=== PATIENT | female | born 1960 ===

== ENCOUNTER 2018-03-03 04:18 | Inpatient (IN) | payer OTHER ==
[2018-03-03] MEDS ORDERED: NACL 0.9% 3 ML SYG IV (06:00)
[2018-03-03 06:23] LABS: ADD MAN DIFF? NO
[2018-03-03 06:27] LABS: BASOPHILS % 0.4 % (0.0-2.0); EOSINOPHILS # 0.1 10^3/ul (0.0-0.5); EOSINOPHILS % 1.1 % (0.0-7.0); HEMATOCRIT 37.6 % (37.0-47.0); HEMOGLOBIN 12.2 g/dl (12.0-16.0); LYMPHOCYTES # 3.1 10^3/ul (0.8-2.9); MEAN CORPUSCULAR HEMOGLOBIN 29.3 pg (29.0-33.0); MEAN CORPUSCULAR HGB CONC 32.4 g/dl (32.0-37.0); MEAN CORPUSCULAR VOLUME 90.4 fl (82.0-101.0); MEAN PLATELET VOLUME 9.1 fl (7.4-10.4); MONOCYTE # 0.7 10^3/ul (0.3-0.9); MONOCYTES % 6.8 % (0.0-11.0); NEUTROPHIL # 6.9 10^3/ul (1.6-7.5); NEUTROPHILS % 63.3 % (39.0-77.0); PLATELET COUNT 271 10^3/UL (140-415); RED BLOOD COUNT 4.16 10^6/ul (4.20-5.40); RED CELL DISTRIBUTION WIDTH 12.6 % (11.5-14.5)
[2018-03-03 06:27] LABS: WHITE BLOOD COUNT 10.9 10^3/ul (4.8-10.8)
[2018-03-03] MEDS: PANTOPRAZOLE 40 MG INJ IV (06:36)
[2018-03-03] MEDS: traMADol 50 MG TAB PO (06:38)
[2018-03-03 06:50] LABS: PROTIME 12.3 Sec (11.9-14.9)
[2018-03-03 06:51] LABS: PARTIAL THROMBOPLASTIN TIME 34.9 Sec (23.0-35.0)
[2018-03-03 06:53] LABS: ALANINE AMINOTRANSFERASE 26 IU/L (13-69); ALBUMIN 4.1 g/dl (3.3-4.9); ALBUMIN/GLOBULIN RATIO 1.13; ALKALINE PHOSPHATASE 93 IU/L (42-121); ANION GAP 11 (5-13); ASPARTATE AMINO TRANSFERASE 25 IU/L (15-46); BILIRUBIN,INDIRECT 0.4 mg/dl (0-1.1); BILIRUBIN,TOTAL 0.4 mg/dl (0.2-1.3); BLOOD UREA NITROGEN 14 mg/dl (7-20); CALCIUM 8.8 mg/dl (8.4-10.2); CARBON DIOXIDE 24 mmol/L (21-31); CHLORIDE 108 mmol/L (97-110); CREATININE 0.45 mg/dl (0.44-1.00); Estimated GFR > 60 mL/min (>60); GLUCOSE 109 mg/dl (70-220); MAGNESIUM 2.1 mg/dl (1.7-2.5); PHOSPHORUS 3.5 mg/dl (2.5-4.9); POTASSIUM 3.9 mmol/L (3.5-5.1); SODIUM 143 mmol/L (135-144); TOTAL PROTEIN 7.7 g/dl (6.1-8.1)
[2018-03-03] MEDS: BISACODYL (EC) 5 MG TAB PO (17:17)
[2018-03-03] MEDS: ALBUTEROL HFA 8 GM INHALER INH ×2 (17:20→20:22)
[2018-03-03] MEDS: POLYETHYLENE GLYCOL 3350 119 GM POWDER PO (17:44)
[2018-03-03] MEDS: MAGNESIUM CITRATE 300 ML BTL PO (17:51)
[2018-03-03] MEDS: ATORVASTATIN 10 MG TAB PO (20:22)
[2018-03-04] MEDS: ALBUTEROL HFA 8 GM INHALER INH ×6 (01:00→21:07)
[2018-03-04 03:35] LABS: OCCULT BLOOD STOOL POSITIVE (NEGATIVE)
[2018-03-04] MEDS: ZOLPIDEM 5 MG TAB PO ×2 (03:42→23:08)
[2018-03-04 05:25] LABS: WHITE BLOOD COUNT 9.8 10^3/ul (4.8-10.8)
[2018-03-04 05:25] LABS: ADD MAN DIFF? NO; BASOPHIL # 0.1 10^3/ul (0.0-0.1); BASOPHILS % 0.5 % (0.0-2.0); EOSINOPHILS # 0.2 10^3/ul (0.0-0.5); EOSINOPHILS % 2.1 % (0.0-7.0); HEMATOCRIT 38.4 % (37.0-47.0); HEMOGLOBIN 12.6 g/dl (12.0-16.0); LYMPHOCYTES # 3.5 10^3/ul (0.8-2.9); LYMPHOCYTES % 35.7 % (15.0-51.0); MEAN CORPUSCULAR HEMOGLOBIN 29.6 pg (29.0-33.0); MEAN CORPUSCULAR HGB CONC 32.8 g/dl (32.0-37.0); MEAN CORPUSCULAR VOLUME 90.1 fl (82.0-101.0); MEAN PLATELET VOLUME 9.2 fl (7.4-10.4); MONOCYTE # 0.7 10^3/ul (0.3-0.9); MONOCYTES % 7.2 % (0.0-11.0); NEUTROPHIL # 5.3 10^3/ul (1.6-7.5); NEUTROPHILS % 54.3 % (39.0-77.0); PLATELET COUNT 285 10^3/UL (140-415); RED BLOOD COUNT 4.26 10^6/ul (4.20-5.40); RED CELL DISTRIBUTION WIDTH 12.5 % (11.5-14.5)
[2018-03-04] MEDS: PANTOPRAZOLE 40 MG INJ IV (05:37)
[2018-03-04] MEDS: POLYETHYLENE GLYCOL 3350 119 GM POWDER PO (05:38)
[2018-03-04 05:49] LABS: IRON 59 ug/dl (35-150)
[2018-03-04 05:58] LABS: % IRON SATURATION 19 % SAT (22-52); TOTAL IRON BINDING CAPACITY 304 ug/dl (241-421)
[2018-03-04 06:17] LABS: FERRITIN 91.9 ng/ml (11.1-264.0)
[2018-03-04 06:19] LABS: ANION GAP 13 (5-13); BLOOD UREA NITROGEN 9 mg/dl (7-20); CALCIUM 8.8 mg/dl (8.4-10.2); CARBON DIOXIDE 23 mmol/L (21-31); CHLORIDE 106 mmol/L (97-110); CREATININE 0.39 mg/dl (0.44-1.00); Estimated GFR > 60 mL/min (>60); GLUCOSE 98 mg/dl (70-220); MAGNESIUM 2.2 mg/dl (1.7-2.5); PHOSPHORUS 3.6 mg/dl (2.5-4.9); POTASSIUM 3.3 mmol/L (3.5-5.1); SODIUM 142 mmol/L (135-144)
[2018-03-04] MEDS: BISACODYL (EC) 5 MG TAB PO (08:28)
[2018-03-04] MEDS: AMLODIPINE 10 MG TAB PO (08:28)
[2018-03-04] MEDS: LOSARTAN 50 MG TAB PO (08:29)
[2018-03-04] MEDS: SOD CHLORIDE 0.9% 1,000 ML IV (12:27)
[2018-03-04] MEDS: POTASSIUM CHLORIDE 100 ML IVPB ×2 (14:14→21:06)
[2018-03-04] MEDS: BARIUM SULF 2% 450 ML BTL (BERRY SMOOTHIE) PO (15:20)
[2018-03-04] MEDS ORDERED: LIDOCAINE 2% (SDV) 5 ML INJ (17:01)
[2018-03-04] MEDS ORDERED: PROPOFOL 40 ML (17:01)
[2018-03-04] MEDS ORDERED: ONDANSETRON 4 MG INJ IV (17:30)
[2018-03-04] MEDS ORDERED: LABETALOL HCL 20MG INJ IV (17:30)
[2018-03-04] MEDS ORDERED: FENTAnyl 50 MCG/ML VIAL IV (17:30)
[2018-03-04] MEDS ORDERED: HYDROmorphONE 1 MG/5 ML IV SYRINGE IV ×2 (17:30)
[2018-03-04] MEDS: ATORVASTATIN 10 MG TAB PO (21:06)
[2018-03-04] MEDS: MESALAMINE (SR) 250 MG CAP PO ×2 (21:06→21:15)
[2018-03-05] MEDS: ALBUTEROL HFA 8 GM INHALER INH ×4 (01:00→12:08)
[2018-03-05] MEDS: PANTOPRAZOLE 40 MG INJ IV (05:25)
[2018-03-05 05:47] LABS: C-REACTIVE PROTEIN 0.9 mg/dl (0.0-0.9)
[2018-03-05] MEDS: MESALAMINE (SR) 250 MG CAP PO ×4 (08:49→21:37)
[2018-03-05] MEDS: AMLODIPINE 10 MG TAB PO (08:49)
[2018-03-05 13:31] LABS: MYELOPEROXIDASE ANTIBODY <1.0 AI; PROTEINASE-3 ANTIBODY <1.0 AI
[2018-03-05] MEDS: BARIUM SULFATE 0.1% 450 ML BTL (VOLUMEN) PO ×3 (14:10→14:40)
[2018-03-05 14:22] LABS: ANCA SCREEN NEGATIVE (NEGATIVE)
[2018-03-05] MEDS: GLUCAGON 1 MG INJ (15:08)
[2018-03-05] MEDS: IOHEXOL 350MG/ML 50 ML BTL (15:20)
[2018-03-05] MEDS: SOD CHLORIDE 0.9% 100 ML (15:20)
[2018-03-05] MEDS: IOHEXOL 100 ML (15:20)
[2018-03-05] MEDS ORDERED: ALBUTEROL HFA 8 GM INHALER INH (15:30)
[2018-03-05] MEDS: METHYLPREDNISOLONE 125 MG INJ IV (16:00)
[2018-03-05] MEDS ORDERED: ENALAPRILAT 1.25 MG INJ IV (16:00)
[2018-03-05] MEDS: CLONIDINE 0.2 MG/24 HR PATCH TRANSDERM (17:00)
[2018-03-05 17:01] LABS: TROPONIN-I < 0.012 ng/ml (0.000-0.120)
[2018-03-05] MEDS ORDERED: LEVALBUTEROL (NEB) 0.63 MG/3 ML AMP HHN (17:30)
[2018-03-05] MEDS: DIPHENHYDRAMINE 50 MG INJ IV (18:00)
[2018-03-05] MEDS: FAMOTIDINE 20 MG INJ IV (21:38)
[2018-03-05] MEDS: POTASSIUM CHLORIDE 20 MEQ POWDER FOR ORAL SOLN PO (21:38)
[2018-03-06] MEDS: DIPHENHYDRAMINE 50 MG INJ IV ×4 (00:37→17:51)
[2018-03-06 06:02] LABS: ADD MAN DIFF? NO
[2018-03-06 06:05] LABS: HAAIG REFLEX REFLEX FILED
[2018-03-06 06:10] LABS: BASOPHIL # 0.1 10^3/ul (0.0-0.1); BASOPHILS % 0.8 % (0.0-2.0); EOSINOPHILS # 0.3 10^3/ul (0.0-0.5); EOSINOPHILS % 3.3 % (0.0-7.0); HEMATOCRIT 38.7 % (37.0-47.0); HEMOGLOBIN 12.6 g/dl (12.0-16.0); LYMPHOCYTES # 3.5 10^3/ul (0.8-2.9); LYMPHOCYTES % 35.3 % (15.0-51.0); MEAN CORPUSCULAR HEMOGLOBIN 29.2 pg (29.0-33.0); MEAN CORPUSCULAR HGB CONC 32.6 g/dl (32.0-37.0); MEAN CORPUSCULAR VOLUME 89.8 fl (82.0-101.0); MEAN PLATELET VOLUME 9.1 fl (7.4-10.4); MONOCYTE # 0.7 10^3/ul (0.3-0.9); MONOCYTES % 7.4 % (0.0-11.0); NEUTROPHIL # 5.2 10^3/ul (1.6-7.5); NEUTROPHILS % 52.9 % (39.0-77.0); PLATELET COUNT 292 10^3/UL (140-415); RED BLOOD COUNT 4.31 10^6/ul (4.20-5.40); RED CELL DISTRIBUTION WIDTH 12.4 % (11.5-14.5)
[2018-03-06 06:10] LABS: WHITE BLOOD COUNT 9.8 10^3/ul (4.8-10.8)
[2018-03-06 06:29] LABS: ALANINE AMINOTRANSFERASE 27 IU/L (13-69); ALBUMIN/GLOBULIN RATIO 1.11; ALKALINE PHOSPHATASE 83 IU/L (42-121); ANION GAP 12 (5-13); ASPARTATE AMINO TRANSFERASE 23 IU/L (15-46); BILIRUBIN,INDIRECT 0.8 mg/dl (0-1.1); BILIRUBIN,TOTAL 0.8 mg/dl (0.2-1.3); BLOOD UREA NITROGEN 17 mg/dl (7-20); CALCIUM 9.5 mg/dl (8.4-10.2); CARBON DIOXIDE 22 mmol/L (21-31); CHLORIDE 104 mmol/L (97-110); CREATININE 0.49 mg/dl (0.44-1.00); Estimated GFR > 60 mL/min (>60); GLUCOSE 93 mg/dl (70-220); MAGNESIUM 2.1 mg/dl (1.7-2.5); PHOSPHORUS 4.4 mg/dl (2.5-4.9); POTASSIUM 4.1 mmol/L (3.5-5.1); SODIUM 138 mmol/L (135-144); TOTAL PROTEIN 7.6 g/dl (6.1-8.1)
[2018-03-06 06:40] LABS: TROPONIN-I < 0.012 ng/ml (0.000-0.120)
[2018-03-06 07:01] LABS: HEPATITIS B SURFACE ANTIGEN NEGATIVE (NEGATIVE)
[2018-03-06 07:18] LABS: HEPATITIS B CORE ANTIBODY NEGATIVE (NEGATIVE); HEPATITIS C VIRAL ANTIBODY NEGATIVE (NEGATIVE)
[2018-03-06] MEDS ORDERED: FAMOTIDINE 20 MG TAB PO (09:00)
[2018-03-06] MEDS: AMLODIPINE 10 MG TAB PO (09:30)
[2018-03-06] MEDS: FAMOTIDINE 20 MG INJ IV ×2 (09:30→21:09)
[2018-03-06] MEDS: POTASSIUM CHLORIDE 20 MEQ POWDER FOR ORAL SOLN PO (09:31)
[2018-03-06] MEDS: MESALAMINE (SR) 250 MG CAP PO ×4 (09:31→21:09)
[2018-03-06] MEDS: POLYETHYLENE GLYCOL 17 GM PACKET PO (13:30)
[2018-03-06] MEDS: ATORVASTATIN 10 MG TAB PO (21:10)
[2018-03-07] MEDS: ONDANSETRON 4 MG INJ IV (00:59)
[2018-03-07] MEDS: DIPHENHYDRAMINE 50 MG INJ IV (02:23)
[2018-03-07] MEDS: AMLODIPINE 10 MG TAB PO (08:34)
[2018-03-07] MEDS: LOSARTAN 50 MG TAB PO (08:34)
[2018-03-07] MEDS: POLYETHYLENE GLYCOL 17 GM PACKET PO (08:35)
[2018-03-07] MEDS: POTASSIUM CHLORIDE 20 MEQ POWDER FOR ORAL SOLN PO (08:35)
[2018-03-07] MEDS: FAMOTIDINE 20 MG INJ IV (08:35)
[2018-03-07] MEDS: MESALAMINE (SR) 250 MG CAP PO ×2 (08:35→12:55)
[2018-03-07] MEDS ORDERED: DIPHENHYDRAMINE 25 MG CAP PO (09:00)
== END 2018-03-07 17:30 | disposition home or self-care (01) | DRG 387 ==
LOC: 2NE 04:18
PROC: 0DBK8ZX Excision of Ascending Colon, Via Natural or Artificial Opening Endoscopic, Diagnostic (ICD-10-PCS; principal; 2018-03-04 16:45)
PROC: 0DBL8ZX Excision of Transverse Colon, Via Natural or Artificial Opening Endoscopic, Diagnostic (ICD-10-PCS; 2018-03-04 16:45)
PROC: 0DBN8ZX Excision of Sigmoid Colon, Via Natural or Artificial Opening Endoscopic, Diagnostic (ICD-10-PCS; 2018-03-04 16:45)
PROC: 0DBP8ZX Excision of Rectum, Via Natural or Artificial Opening Endoscopic, Diagnostic (ICD-10-PCS; 2018-03-04 16:45)
PROC: 0DBB8ZX Excision of Ileum, Via Natural or Artificial Opening Endoscopic, Diagnostic (ICD-10-PCS; 2018-03-04 16:45)
PROC: 0DBM8ZX Excision of Descending Colon, Via Natural or Artificial Opening Endoscopic, Diagnostic (ICD-10-PCS; 2018-03-04 16:45)
PROC: 0DBH8ZX Excision of Cecum, Via Natural or Artificial Opening Endoscopic, Diagnostic (ICD-10-PCS; 2018-03-04 16:45)
DX: K50.811 Crohn's disease of both small and large intestine with rectal bleeding (principal); I10 Essential (primary) hypertension; J45.909 Unspecified asthma, uncomplicated; E78.00 Pure hypercholesterolemia, unspecified; K64.8 Other hemorrhoids; G62.9 Polyneuropathy, unspecified; K59.09 Other constipation; R06.02 Shortness of breath; R07.9 Chest pain, unspecified; L29.9 Pruritus, unspecified; Z86.711 Personal history of pulmonary embolism; T50.8X5A Adverse effect of diagnostic agents, initial encounter; Y92.238 Other place in hospital as the place of occurrence of the external cause
CPT/HCPCS: 71045; 74178; 80048; 80053; 82270; 82728; 83540; 83735; 84100; 84443; 84484; 84703; 85025; 85610; 85730; 86021; 86140; 86704; 86709; 86803; 87340; 88305; 93005

== ENCOUNTER 2018-08-18 09:14 | Emergency (ER) | payer OTHER ==
[2018-08-18] MEDS: IBUPROFEN 800 MG TAB PO (10:33)
== END 2018-08-18 11:53 | disposition home or self-care (01) ==
LOC: FTE 09:14
DX: M25.562 Pain in left knee (principal); J45.909 Unspecified asthma, uncomplicated; I10 Essential (primary) hypertension
CPT/HCPCS: 73562; 99283-25